=== PATIENT | male | born 1940 | race Asian ===

== ENCOUNTER 2021-02-15 14:10 | Inpatient (IN) | payer OTHER, SELFPAY ==
[~2021-02-15] VITALS: Ht 144.8 cm; Wt 44.0 kg
--- NOTE | 2021-02-15 15:45 | NUR ---
Patient arrived to unit in stable condition; ambulated with steady gait with no complaint of pain.
[2021-02-15 16:45] VITALS: BP_SYST 109
--- NOTE | 2021-02-15 16:45 | NUR ---
Patient resting comfortably in bed with Lucina rivera at bedside. Patient stable.
--- NOTE | 2021-02-15 16:54 | NUR ---
PAGED PAGED YOSEF GRANADOS AT [phone] SPOKE WITH XOCHITL.
--- NOTE | 2021-02-15 17:10 | NUR ---
Patient stable with daughter and Dr. Perdomo at bedside.
[2021-02-15 18:10] LABS: BASOPHILS % (AUTO) 0.7 % (0.0-2.0); EOSINOPHILS # (AUTO) 0.2 K/uL (0.0-0.4); EOSINOPHILS % (AUTO) 3.6 % (0.0-4.0); HEMATOCRIT 30.2 % (36-54); HEMOGLOBIN 10.1 g/dL (14.0-18.0); LYMPHOCYTES # (AUTO) 0.9 K/uL (1.0-5.5); LYMPHOCYTES % (AUTO) 14.1 % (20.5-51.5); MEAN CORPUSCULAR HEMOGLOBIN 34 pg (27-31); MEAN CORPUSCULAR HGB CONC 34 % (32-36); MEAN CORPUSCULAR VOLUME 101 fL (79.0-98.0); MONOCYTES # (AUTO) 0.6 K/uL (0.0-1.0); MONOCYTES % (AUTO) 9.6 % (1.7-9.3); NEUTROPHILS # (AUTO) 4.5 K/uL (1.8-7.7); PLATELET COUNT (AUTO) 228 K/uL (130-430); RED CELL DISTRIBUTION WIDTH 17.1 % (9.0-15.0); WHITE BLOOD COUNT (AUTO) 6.2 K/uL (4.8-10.8)
[2021-02-15 18:18] LABS: PROTHROMBIN TIME 10.2 SECS (9.5-12.5)
[2021-02-15 18:22] LABS: ALANINE AMINOTRANSFERASE 36 U/L (12-78); ANION GAP 8 (5-15); ASPARTATE AMINOTRANSFERASE 33 U/L (10-37); CALCIUM 8.6 mg/dL (8.4-11.0); CHLORIDE 109 mmol/L (98-107); CREATININE 2.37 mg/dL (0.55-1.30); GLUCOSE 102 mg/dL (70-99); SODIUM SERUM 138 mmol/L (136-145); TOTAL BILIRUBIN 0.3 mg/dL (0.0-1.0); UREA NITROGEN, BLOOD 79 mg/dL (8-21)
[2021-02-15] MEDS ORDERED: VALS160T2 PO (18:39)
[2021-02-15] MEDS ORDERED: DIPH50CA38 PO (18:39)
[2021-02-15] MEDS ORDERED: REGL10 PO (18:39)
[2021-02-15] MEDS ORDERED: LIP20 PO (18:39)
[2021-02-15] MEDS ORDERED: PANT20TA16 PO (18:42)
[2021-02-15] MEDS ORDERED: FLUO15CR49 TP (18:44)
[2021-02-15 18:47] LABS: POTASSIUM 6.4 mmol/L (3.5-5.1)
--- NOTE | 2021-02-15 18:50 | NUR ---
Patient asleep at this time; no distress noted. Daughter still at bedside. Stable since arrival to unit.
--- NOTE | 2021-02-15 19:05 | NUR ---
1849: Received lab result marshall Ferrera: K+ 6.4. 1899: Called exchange and spoke to Rafia. Awaiting call back from doctor.
--- NOTE | 2021-02-15 19:10 | NUR ---
Dr. Hmuphrey in hospital; made aware of abnormal lab - K+ 6.4. Per doctor, will enter order for kayexalate.
--- NOTE | 2021-02-15 19:15 | NUR ---
OPENING NOTES Patient resting in bed - no s/s pain or distress noted. Respirations even and unlabored - head of bed elevated. Needs IV. Bed locked and in lowest position. Call light within reach - daughter at bedside.
[2021-02-15] MEDS ORDERED: INSULIN Lispro 100 UNITS/ML VIAL (humaLOG) IV ONE (19:30)
[2021-02-15] MEDS ORDERED: SODIUM POLYSTYRENE SULFONATE 15 GM/60 ML UDBTL PO ONE (19:30)
[2021-02-15] MEDS ORDERED: PANTOPRAZOLE SODIUM 40 MG/VIAL (PROTONIX) IVP ONE (19:45)
[2021-02-15] MEDS ORDERED: ACETAMINOPHEN 325 MG TABLET PO PRN (19:45)
[2021-02-15] MEDS ORDERED: DIPHENHYDRAMINE HCL 50 MG CAPSULE PO PRN (19:45)
[2021-02-15] MEDS ORDERED: ONDANSETRON HCL 4 MG/2 ML VIAL IVP PRN (19:45)
[2021-02-15] MEDS ORDERED: cloNIDine HCL 0.1 MG TABLET PO PRN (19:45)
[2021-02-15] MEDS ORDERED: DEXTROSE 50% JECT 50 ML DISP.SYRIN IVP PRN (19:45)
[2021-02-15] MEDS ORDERED: INSULIN REGULAR, HUMAN 100 UNITS/ML, 10 ML VIAL (humuLIN R) SUBCUT PRN (19:45)
[2021-02-15 20:00] VITALS: BP_SYST 101
[2021-02-15] MEDS: ATORVASTATIN 20 MG TABLET PO SCH (21:14)
[2021-02-15] MEDS ORDERED: SODIUM POLYSTYRENE SULFONATE 15 GM/60 ML UDBTL ONE ×2 (21:14→21:18)
[2021-02-15] MEDS: TAMSULOSIN HCL 0.4 MG CAP PO SCH (21:14)
--- NOTE | 2021-02-15 22:00 | NUR ---
OPENING NOTES Patient resting in bed - no s/s pain or distress noted. Respirations even and unlabored - head of bed elevated. Needs IV. Bed locked and in lowest position. Call light within reach - daughter at bedside. Addendum: 02/16/21 at 0351 by Crow Burgess RN THESE ARE ROUNDING NOTES, NOT OPENING NOTES
[2021-02-16] VITALS: BP_SYST 103
--- NOTE | 2021-02-16 | NUR ---
ROUNDING NOTES Patient resting in bed - no s/s pain or distress noted. Respirations even and unlabored - head of bed elevated. IV site patent - no s/s redness, infection, or infiltration. Bed locked and in lowest position. Call light within reach - daughter at bedside.
[2021-02-16 00:26] LABS: BILIRUBIN,URINE NEGATIVE (NEGATIVE); BLOOD, URINE 3+ (NEGATIVE); CLARITY/URINE CLEAR (CLEAR); COLOR,URINE YELLOW (YELLOW); GLUCOSE,URINE NEGATIVE (NEGATIVE); KETONES,URINE NEGATIVE (NEGATIVE); LEUKOCYTE ESTERASE ,URINE 1+ (NEGATIVE); NITRITE, URINE NEGATIVE (NEGATIVE); PH,URINE 5.5 (5.0-8.0); PROTEIN URINE 1+ (NEGATIVE); UROBILINOGEN,URINE 0.2 (0.2-1.0)
[2021-02-16 01:56] LABS: BACTERIA,URINE FEW /HPF (None Seen); RBC,URINE 50-80 /HPF (0-3)
[2021-02-16] MEDS: D5/0.45 NS 1,000 ML IV SCH ×4 (05:55→20:22)
[2021-02-16 07:18] LABS: BASOPHILS # (AUTO) 0.1 K/uL (0.0-0.2); BASOPHILS % (AUTO) 1.3 % (0.0-2.0); EOSINOPHILS # (AUTO) 0.3 K/uL (0.0-0.4); EOSINOPHILS % (AUTO) 4.9 % (0.0-4.0); HEMOGLOBIN 9.3 g/dL (14.0-18.0); LYMPHOCYTES # (AUTO) 0.8 K/uL (1.0-5.5); LYMPHOCYTES % (AUTO) 14.7 % (20.5-51.5); MEAN CORPUSCULAR HEMOGLOBIN 34 pg (27-31); MEAN CORPUSCULAR HGB CONC 33 % (32-36); MEAN CORPUSCULAR VOLUME 101 fL (79.0-98.0); MONOCYTES # (AUTO) 0.3 K/uL (0.0-1.0); MONOCYTES % (AUTO) 5.3 % (1.7-9.3); NEUTROPHILS # (AUTO) 4.2 K/uL (1.8-7.7); NEUTROPHILS % (AUTO) 73.8 % (40.0-70.0); PLATELET COUNT (AUTO) 205 K/uL (130-430); RED BLOOD CELL COUNT(AUTO) 2.77 MIL/uL (4.2-6.2); RED CELL DISTRIBUTION WIDTH 16.8 % (9.0-15.0); RETICULOCYTE COUNT 2.7 % (0.5-1.5); WHITE BLOOD COUNT (AUTO) 5.7 K/uL (4.8-10.8)
--- NOTE | 2021-02-16 07:50 | NUR ---
Opening note Patient is resting in bed A&Ox3 Tamazight speaking, daughter is at bedside assists with translation. No complaint of pain or discomfort, No signs or symptoms of respiratory distress. IV is infusing, no sign signs or symptoms of infiltration. Unable to educate patient effectively due to language barrier, education provided to patient daughter, she verbalized understanding. Bed is in lowest position call light within reach fall and aspiration precautions are in place. Will continue to monitor.
[2021-02-16 08:00] VITALS: BP_SYST 130
[2021-02-16] MEDS: PANTOPRAZOLE SODIUM 40 MG/VIAL (PROTONIX) IVP SCH (08:26)
[2021-02-16] MEDS: MEGESTROL ACETATE 400 MG/10 ML UDC PO SCH (08:26)
[2021-02-16] MEDS: TAMSULOSIN HCL 0.4 MG CAP PO SCH ×2 (08:26→20:25)
[2021-02-16 10:11] LABS: ANION GAP 13 (5-15); CALCIUM 7.8 mg/dL (8.4-11.0); CHLORIDE 108 mmol/L (98-107); CREATININE 1.93 mg/dL (0.55-1.30); GLUCOSE 114 mg/dL (70-99); PHOSPHORUS 5.3 mg/dL (2.7-4.5); POTASSIUM 5.7 mmol/L (3.5-5.1); SODIUM SERUM 137 mmol/L (136-145); UREA NITROGEN, BLOOD 65 mg/dL (8-21)
[2021-02-16 11:25] LABS: TOTAL IRON BIND. CAPACITY 235 ug/dL (250-450)
--- NOTE | 2021-02-16 12:00 | NUR ---
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 She does not want anyone/homehealth visting nurse nor sending pt to snf.
[2021-02-16] MEDS ORDERED: ENOXAPARIN SODIUM 30 MG/0.3 ML SYRINGE SUBCUT ONE (14:00)
--- NOTE | 2021-02-16 15:59 | NUR ---
Dietitian Recommendations * Recommend mechanical soft, renal diet w/ Nepro BID (ONS provides 840 kcal/day, 38 gm protein/day) * Recommend continuing appetite stimulant * Encourage increase PO intakes LP, RD Please refer to Nutrition F/U for details. Addendum: 02/16/21 at [address] Amended: Links added.
[2021-02-16 16:00] VITALS: BP_SYST 117
--- NOTE | 2021-02-16 18:27 | NUR ---
Closing note Patient is resting in bed A&Ox3 Telugu speaking, daughter is at bedside assists with translation. No complaint of pain or discomfort, No signs or symptoms of respiratory distress. IV is infusing, no sign signs or symptoms of infiltration. All needs were met. Bed is in lowest position call light within reach fall and aspiration precautions are in place. Will endorse report to counter sales person.
[2021-02-16 20:00] VITALS: BP_SYST 117
[2021-02-16] MEDS: ATORVASTATIN 20 MG TABLET PO SCH (20:25)
[2021-02-17] VITALS: BP_SYST 112
[2021-02-17] MEDS: D5/0.45 NS 1,000 ML IV SCH ×3 (05:54→15:10)
[2021-02-17 08:00] VITALS: BP_SYST 127
--- NOTE | 2021-02-17 08:00 | NUR ---
Initial Note Patient awake, alert, and oriented x 4. Daughter at bedside. Patient ambulatory without assist. Noted IV site infiltrated; discontinued at this time. New IV 22g inserted to right wrist; site patent with blood return. No signs or symptoms of pain or distress noted. Call light placed in reach and bed in lowest position. Encouraged to call.
[2021-02-17 08:29] LABS: BASOPHILS % (AUTO) 0.6 % (0.0-2.0); EOSINOPHILS # (AUTO) 0.2 K/uL (0.0-0.4); EOSINOPHILS % (AUTO) 5.8 % (0.0-4.0); HEMATOCRIT 25.5 % (36-54); HEMOGLOBIN 8.6 g/dL (14.0-18.0); LYMPHOCYTES # (AUTO) 0.8 K/uL (1.0-5.5); LYMPHOCYTES % (AUTO) 18.8 % (20.5-51.5); MEAN CORPUSCULAR HEMOGLOBIN 34 pg (27-31); MEAN CORPUSCULAR HGB CONC 34 % (32-36); MEAN CORPUSCULAR VOLUME 100 fL (79.0-98.0); MONOCYTES # (AUTO) 0.2 K/uL (0.0-1.0); MONOCYTES % (AUTO) 3.8 % (1.7-9.3); PLATELET COUNT (AUTO) 157 K/uL (130-430); RED BLOOD CELL COUNT(AUTO) 2.57 MIL/uL (4.2-6.2); RED CELL DISTRIBUTION WIDTH 16.1 % (9.0-15.0); WHITE BLOOD COUNT (AUTO) 4.2 K/uL (4.8-10.8)
[2021-02-17] MEDS: TAMSULOSIN HCL 0.4 MG CAP PO SCH ×2 (08:58→20:36)
[2021-02-17] MEDS: PANTOPRAZOLE SODIUM 40 MG/VIAL (PROTONIX) IVP SCH (08:58)
[2021-02-17] MEDS: MEGESTROL ACETATE 400 MG/10 ML UDC PO SCH (08:58)
[2021-02-17] MEDS: ENOXAPARIN SODIUM 30 MG/0.3 ML SYRINGE SUBCUT SCH (08:59)
[2021-02-17 09:06] LABS: FOLATE (FOLIC ACID) >20.0 ng/mL (>3.0)
[2021-02-17 09:33] LABS: ALANINE AMINOTRANSFERASE 30 U/L (12-78); ALBUMIN 2.5 g/dL (3.4-4.8); ANION GAP 11 (5-15); ASPARTATE AMINOTRANSFERASE 28 U/L (10-37); CALCIUM 7.4 mg/dL (8.4-11.0); CHLORIDE 109 mmol/L (98-107); CREATININE 1.51 mg/dL (0.55-1.30); GLUCOSE 109 mg/dL (70-99); POTASSIUM 4.7 mmol/L (3.5-5.1); SODIUM SERUM 138 mmol/L (136-145); TOTAL BILIRUBIN 0.4 mg/dL (0.0-1.0); UREA NITROGEN, BLOOD 46 mg/dL (8-21)
[2021-02-17 12:00] VITALS: BP_SYST 127
--- NOTE | 2021-02-17 15:01 | NUR ---
CN: informed PRAFUL Saini, may discharge pt home with out HH. The family refused HH. Dr Kam serrano.
--- NOTE | 2021-02-17 15:30 | NUR ---
MD Rounds Dr. Humphrey at bedside.
[2021-02-17 16:00] VITALS: BP_SYST 95
--- NOTE | 2021-02-17 16:12 | NUR ---
Notes Family does not want home health. Notified Dr. Humphrey.
--- NOTE | 2021-02-17 19:35 | NUR ---
Closing Note Patient awake and alert, ambulating from restroom. No acute pain or distress. All needs met. Call light in reach, bed in lowest position. Endorsed to night nurse.
[2021-02-17 20:00] VITALS: BP_SYST 110
[2021-02-17] MEDS: ATORVASTATIN 20 MG TABLET PO SCH (20:36)
[2021-02-18] VITALS: BP_SYST 117
[2021-02-18] MEDS: D5/0.45 NS 1,000 ML IV SCH (06:58)
[2021-02-18 07:56] VITALS: BP_SYST 132
[2021-02-18] MEDS: TAMSULOSIN HCL 0.4 MG CAP PO SCH (08:24)
[2021-02-18] MEDS: MEGESTROL ACETATE 400 MG/10 ML UDC PO SCH (08:24)
[2021-02-18 08:25] LABS: BASOPHILS % (AUTO) 0.4 % (0.0-2.0); EOSINOPHILS # (AUTO) 0.2 K/uL (0.0-0.4); EOSINOPHILS % (AUTO) 3.9 % (0.0-4.0); HEMATOCRIT 25.3 % (36-54); HEMOGLOBIN 8.6 g/dL (14.0-18.0); LYMPHOCYTES # (AUTO) 1.1 K/uL (1.0-5.5); LYMPHOCYTES % (AUTO) 19.3 % (20.5-51.5); MEAN CORPUSCULAR HEMOGLOBIN 34 pg (27-31); MEAN CORPUSCULAR HGB CONC 34 % (32-36); MEAN CORPUSCULAR VOLUME 101 fL (79.0-98.0); MONOCYTES # (AUTO) 0.2 K/uL (0.0-1.0); MONOCYTES % (AUTO) 3.6 % (1.7-9.3); NEUTROPHILS # (AUTO) 4.2 K/uL (1.8-7.7); NEUTROPHILS % (AUTO) 72.8 % (40.0-70.0); PLATELET COUNT (AUTO) 171 K/uL (130-430); RED BLOOD CELL COUNT(AUTO) 2.51 MIL/uL (4.2-6.2); RED CELL DISTRIBUTION WIDTH 15.8 % (9.0-15.0); WHITE BLOOD COUNT (AUTO) 5.7 K/uL (4.8-10.8)
[2021-02-18] MEDS: PANTOPRAZOLE SODIUM 40 MG/VIAL (PROTONIX) IVP SCH (08:25)
[2021-02-18] MEDS: ENOXAPARIN SODIUM 30 MG/0.3 ML SYRINGE SUBCUT SCH (08:30)
--- NOTE | 2021-02-18 11:20 | NUR ---
Note Pt sat up in bed to eat breakfast. Pt's daughter has been at bedside throughout the night and now assisting pt with breakfast. Pt is [employer] and speaks [place]. Pt stable and denies any needs at this time. Pt sitting up in bed watching programs on his I-pad. Pt worked with PT - Benny. Pt next to nurses' station for close observation. Call light within reach. Tele unit attached and intact.
--- NOTE | 2021-02-18 11:31 | NUR ---
PAGED PAGED .STEVEN AT [phone] SPOKE [facility].
--- NOTE | 2021-02-18 11:49 | NUR ---
Note Dr Humphrey called back at 1125am and stated to check with Dr Perdomo if pt can go home today or dose pt need 1 unit of PRBC - before discharge home. Still waiting for CMP results of blood draw this am. Pt's daughter Lucina and pt informed.
[2021-02-18 12:00] VITALS: BP_SYST 125
[2021-02-18 12:15] LABS: ANION GAP 17 (5-15); CALCIUM 7.5 mg/dL (8.4-11.0); CHLORIDE 111 mmol/L (98-107); CREATININE 1.92 mg/dL (0.55-1.30); GLUCOSE 107 mg/dL (70-99); POTASSIUM 4.2 mmol/L (3.5-5.1); SODIUM SERUM 142 mmol/L (136-145); UREA NITROGEN, BLOOD 44 mg/dL (8-21)
[2021-02-18] MEDS ORDERED: TAMS0.4C96 PO (13:36)
[2021-02-18 14:43] VITALS: BP_SYST 127
--- NOTE | 2021-02-18 15:00 | NUR ---
Note Dr Perdomo called and stated pt may go home today. Dr Humphrey was on the floor at 1330 - assessed pt and wrote order for pt to be discharged home today. Pt's daughter Lucina at bedside all shift, questions/concerns were answered. Pt was checked on q1' and PRN all shift for needs and care. Pt's daughter assisted pt to restroom to void. Pt's bed in low position all shift. Pt's tele unit was dc'd and returned to front desk monitor. Pt's IV in right wrist was dc'd - site benign - no bleeding/swelling/drainage/odor noted at this time. Pt stable. Pt was given discharge instructions and questions/concerns from pt and pt's daughter were answered. Pt stable. Pt dressed in street clothes and packed all belongings. Pt's daughter checked side table and drawers for belongings. Pt has his cane by his side.
--- NOTE | 2021-02-18 15:02 | NUR ---
Disposition 01
--- NOTE | 2021-02-18 15:05 | NUR ---
Note Pt off the floor via wheelchair with his cane. Pt's daughter Lucina took all belongings and discharge paperwork. Pt stable.
== END 2021-02-18 15:05 | disposition home or self-care (01) | DRG 683 ==
LOC: STU 16:11 → SMU 16:55 → STU 21:34
PROVIDERS: ADMIT Internal Medicine; ATTEND Internal Medicine
DX: N17.0 Acute kidney failure with tubular necrosis (principal); C18.9 Malignant neoplasm of colon, unspecified; E44.1 Mild protein-calorie malnutrition; E87.5 Hyperkalemia; I12.9 Hypertensive chronic kidney disease with stage 1 through stage 4 chronic kidney disease, or unspecified chronic kidney disease; N18.9 Chronic kidney disease, unspecified; Z20.822 Contact with and (suspected) exposure to COVID-19; D63.8 Anemia in other chronic diseases classified elsewhere; Z90.49 Acquired absence of other specified parts of digestive tract; Z79.899 Other long term (current) drug therapy; Z87.891 Personal history of nicotine dependence; Z68.21 Body mass index [BMI] 21.0-21.9, adult
CPT/HCPCS: 36415; 71045; 76376; 76700-TC; 80048; 80053; 81000; 82378; 82607; 82728; 82746; 82962; 83540; 83550; 84100; 85025; 85044; 85610-TC; 85730-TC; 87086; 93005; C9113; G0378; J1650